=== PATIENT | male | born 1960 | race Caucasian/White ===

== ENCOUNTER 2020-08-15 11:31 | Day surgery (SDC) | payer OTHER ==
[~2020-08-15 11:31] MED LIST: ADULT LOW DOSE81 MG PO; ALEVE220 M1 PO; ASPIRIN CHEWABL81 MG PO; MEDROL 4MG DOSEP4 MG PO; MELOXICAM15 MG PO; NORCO 5-325 TA1 EACH PO; PERCOCET 5-3251 EACH PO; PROBIOTIC1 EAC3 PO; SOTALOL80 MG PO; TOPROL XL 25MG25 MG PO; VITAMIN B-121000 MC1 PO
[2020-08-15] MEDS ORDERED: PERCOCET 5-3251 EACH PO (11:40)
[2020-08-16 05:59] LABS: BASOPHIL 0.1 % (0-2); EOSINOPHIL 0.1 % (0-5); HCT 40.6 % (42.0-52.0); HGB 13.5 g/dl (13.2-18.0); LYMPHOCYTE 5.3 % (15-48); MCH 31.8 pg (25.0-31.0); MCHC 33.3 g/dL (32.0-36.0); MCV 95.8 fL (78.0-100.0); MONOCYTE 5.5 % (0-12); MPV 10.7 fL (6.0-9.5); NEUTROPHIL 88.6 % (41-80); NRBC 0; PLT 195 K/uL (150-400); RBC 4.24 M/uL (4.70-6.00); RDW 12.5 % (11.5-14.0); WBC 13.8 K/uL (4.0-10.5)
[2020-08-16 06:18] LABS: BUN/CREAT RATIO (CALC) 16.5 RATIO; CREATININE 0.85 mg/dL (0.67-1.17); POTASSIUM 4.1 mmol/L (3.5-5.1)
[2020-08-16] MEDS ORDERED: ASPIRIN CHEWABL81 MG PO (10:07)
[2020-08-16] MEDS ORDERED: FEOSOL325 MG PO (10:07)
== END 2020-08-16 11:16 | disposition home or self-care (01) ==
LOC: FAS 11:31 → FMS 12:18
PROVIDERS: Orthopaedic Surgery
DX: M17.11 Unilateral primary osteoarthritis, right knee (principal); I48.91 Unspecified atrial fibrillation; R35.1 Nocturia; E66.9 Obesity, unspecified; Z79.82 Long term (current) use of aspirin; Z79.899 Other long term (current) drug therapy; Z96.652 Presence of left artificial knee joint
CPT/HCPCS: 36415; 73560; 80048; 85025; 86850; 86900; 86901; 94010; 94760; 94762; 97110; 97116; 97162; 97165; 97530-GP; C1713; C1776; J0171; J0697; J1100; J1170; J1885; J2250; J2270; J2405; J2704; J2795; J3010; J7120

== ENCOUNTER 2021-01-24 04:53 | Inpatient (IN) | payer OTHER ==
[~2021-01-24] VITALS: Ht 172.7 cm; Wt 121.1 kg
[~2021-01-24 04:53] MED LIST changes: +FEOSOL325 MG PO
[2021-01-24 05:36] LABS: BASOPHIL 0.3 % (0-2); EOSINOPHIL 0.1 % (0-5); HCT 41.3 % (42.0-52.0); HGB 14.2 g/dl (13.2-18.0); LYMPHOCYTE 3.5 % (15-48); MCH 32.1 pg (25.0-31.0); MCHC 34.4 g/dL (32.0-36.0); MCV 93.2 fL (78.0-100.0); MONOCYTE 2.5 % (0-12); MPV 10.5 fL (6.0-9.5); NEUTROPHIL 93.3 % (41-80); NRBC 0; PLT 145 K/uL (150-400); RBC 4.43 M/uL (4.70-6.00); RDW 13.3 % (11.5-14.0); WBC 8.9 K/uL (4.0-10.5)
[2021-01-24 05:50] LABS: BILIRUBIN 1+ mg/dL (NEGATIVE); BLOOD 1+ Ery/uL (NEGATIVE); CLARITY CLEAR (CLEAR); COLOR YELLOW (YELLOW); GLUCOSE (U) NORMAL (NORMAL); LEUKOCYTES TRACE Leu/uL (NEGATIVE); NITRITE NEGATIVE (NEGATIVE); PROTEIN 2+ mg/dL (NEGATIVE); SPECIFIC GRAVITY >=1.030 (1.001-1.030)
[2021-01-24 05:50] LABS: ALBUMIN 3.8 g/dL (3.4-5.0); BILIRUBIN - TOTAL 1.3 mg/dL (0.2-1.0); BUN/CREAT RATIO (CALC) 14.9 RATIO; CREATININE 0.94 mg/dL (0.67-1.17); GLOBULIN (CALCULATION) 3.8 g/dL; POTASSIUM 3.9 mmol/L (3.5-5.1); TOTAL PROTEIN 7.6 g/dL (6.4-8.2)
[2021-01-24 05:59] LABS: BACTERIA TRACE
[2021-01-24 06:00] LABS: MUCOUS TRACE
[2021-01-24 06:06] LABS: LACTIC ACID 2.8 mmol/L (0.4-1.9)
[2021-01-24 06:08] LABS: CORONAVIRUS 2019 SARS-COV-2 NEGATIVE (NEGATIVE); INFLUENZA A NAA NEGATIVE (NEGATIVE)
[2021-01-24] MEDS ORDERED: ASPIRIN81 MG PO (10:45)
--- NOTE | 2021-01-24 16:43 | NUR ---
RIA BOCANEGRA IN ROOM, NOTICED THAT PATIENT WAS SHAKIN UNCONTROLLABLY AND HIS RR WERE INCREASED. PATIENT APPEARED RUBY, PALE AND RIA WAS UNABLE TO OBTAIN PATIENTS VITALS, IMMEDIATELEY CALLED FOR ANDREAS REAL RN. UPON ARRIVAL TO ROOM ANDREAS BOCANEGRA CALLED RAPID RESPONSE. ROUGH PATCHER CALLED AT 1610, INITIAL GLUCOSE 95, INITAL VITALS FOLLOWS: BP (UNABLE TO OBTAIN R/T SHAKING, WILL GET MANUAL), HR 155, RR 38, O2 ON 2L NC 94%, AXILLARY TEMP 103. CALLED FOR EKG AND ABG. DR SMITH (PRIMARY MD) AND DR COVARRUBIAS RESPONDED AT 1613. EKG AND ABG UNABLE TO BE OBTAINED R/T PATIENT SHAKING. DR SMITH ORDERED 0.5 IV ATIVAN X1 NOW, GIVEN BY RIA BOCANEGRA AT 1615. HE ALSO ORDERED 15MG IV TORADOL NOW X1, GIVEN BY RIA RN AT 1619. HE ALSO ORDERED 650MG TYLENOL SUPPOSITORY TO BE GIVEN NOW, AND WAS ADMINISTERED BY ANDREAS BOCANEGRA AT 1620. A SECOND IV SITE ESTABLISHED, #20 IN RIGHT AC, BLOOD WORK COLLECTED AND SENT AT THIS TIME. LR STARTED AT 75ML/HOUR. PATIENT TRASNPORTED IN STABLE CONDITION AT 1634. GREEN SEPSIS PROTOCOL FORM PULLED AND INITATED, BLOOD CULTURES DRAWN AND SENT WITH IV START.
[2021-01-24 18:31] LABS: HCT 43.7 % (42.0-52.0); HGB 14.6 g/dl (13.2-18.0); MCHC 33.4 g/dL (32.0-36.0); MCV 95.8 fL (78.0-100.0); MPV 11.7 fL (6.0-9.5); RBC 4.56 M/uL (4.70-6.00); RDW 13.5 % (11.5-14.0); WBC 4.4 K/uL (4.0-10.5)
[2021-01-24 18:43] LABS: BUN/CREAT RATIO (CALC) 13.8 RATIO; CREATININE 1.09 mg/dL (0.67-1.17); POTASSIUM 4.6 mmol/L (3.5-5.1)
[2021-01-25 05:37] LABS: HCT 37.6 % (42.0-52.0); HGB 12.9 g/dl (13.2-18.0); MCH 32.2 pg (25.0-31.0); MCHC 34.3 g/dL (32.0-36.0); MCV 93.8 fL (78.0-100.0); MPV 10.6 fL (6.0-9.5); RBC 4.01 M/uL (4.70-6.00); RDW 13.7 % (11.5-14.0)
[2021-01-25 05:40] LABS: WBC 9.8 K/uL (4.0-10.5)
[2021-01-25 05:48] LABS: MAGNESIUM 1.8 mg/dL (1.8-2.4)
[2021-01-25 06:03] LABS: BUN/CREAT RATIO (CALC) 15.9 RATIO; CREATININE 0.88 mg/dL (0.67-1.17); POTASSIUM 3.9 mmol/L (3.5-5.1)
--- NOTE | 2021-01-25 14:25 | NUR ---
1350 MIDLINE ORDERED FOR IV ANTIBIOTICS AT HOME, ORDER WAS GIVEN BY DR. SMITH. PROCEDURE WAS EXPLAINED TO PT. PT AGREED. PT WAS PREPPED AND DRAPED IN STERILE FASHION. THE PT'S LEFT UPPER ARM BASILIC VEIN WAS VISUALIZED USING THE SITE RITE 6 US MACHINE. A 21 GAUGE GUIDE NEEDLE WAS USED. THE AREA WAS NUMBED PRIOR TO THE INSERTION OF THE GUIDE NEEDLE WITH 1% LIDOCAINE. GOOD BLOOD RETURN WAS NOTED WITH THE INSERTION OF THE GUIDE NEEDLE. THE GUIDE WIRE THREADED EASILY. THE NEEDLE WAS REMOVED AND THE MIDLINE CHATETER WAS PLACED OVER THE WIRE. THE WIRE AND SHEATH WERE REMOVED. GOOD BLOOD RETURN WAS NOTED. A CONNECTOR WAS FLUSHED AND PLACED OVER THE END OF THE CATHETER. A STAT LOCK WAS PLACED ON THE CATHETER AND A BIOPATCH WAS PLACED AROUND THE CATHETER AT THE INSERTION SITE. A STERILE TEGADERM WAS PLACED OVER THE MIDLINE CATETER. PT TOLERATED THE PROCEDURE WELL. PT HAS A 20 G 10 CM POWERGLIDE MIDLINE CATHETER. PT TOLERATED THE PROCEDURE WELL. THIS IS NOT A CENTRAL LINE. REPORT WAS GIVEN TO EMMA ROMAN R.N. ON TCU. THE PATIENT 'S BED WAS LOWERED TO THE FLOOR, SIDERAILS UP X 2, CALL LIGHT WITHIN REACH. PT TOLERATED PROCEDURE WELL.
--- NOTE | 2021-01-25 15:16 | NUR ---
01/25/21 Mr. Sunshine shares a home with his spouse. He is employed and was independent in the home and community prior to admission. Mr. Sunshine will require IV antibiotics following discharge. He prefers [facility]; affliation understood. A referral will be made to [facility] once the medication has been ordered. - Patient is currently using 02. Please advise if needed at home.
[2021-01-26 05:36] LABS: HCT 35.1 % (42.0-52.0); MCH 32.1 pg (25.0-31.0); MCHC 34.2 g/dL (32.0-36.0); MCV 93.9 fL (78.0-100.0); MPV 10.9 fL (6.0-9.5); RBC 3.74 M/uL (4.70-6.00); RDW 13.8 % (11.5-14.0); WBC 7.7 K/uL (4.0-10.5)
[2021-01-26 05:48] LABS: BUN/CREAT RATIO (CALC) 9.7 RATIO; CREATININE 0.93 mg/dL (0.67-1.17); POTASSIUM 3.6 mmol/L (3.5-5.1); VANCOMYCIN, TROUGH 7.7 ug/mL (10-20)
[2021-01-26 22:07] LABS: CHLAMYDIA TRACHOMATIS, NAA Negative (Negative); NEISSERIA GONORRHOEAE, NAA Negative (Negative)
--- NOTE | 2021-01-27 01:27 | NUR ---
Pt having discomfort with hylton catheter. Straining to "push out urine" and wanting to get up and out of bed frequently. discomfort unrelieved by oxybutynin. AZO given, see MAR. Hylton cath flushed with 50cc NS x2 with 100cc urine retrieved in total. No clots present in flush, small clots present in drainage bag. Pt states he feels much better after flushing of hylton.
[2021-01-27 06:25] LABS: HCT 35.2 % (42.0-52.0); HGB 12.2 g/dl (13.2-18.0); MCH 32.1 pg (25.0-31.0); MCHC 34.7 g/dL (32.0-36.0); MCV 92.6 fL (78.0-100.0); MPV 10.4 fL (6.0-9.5); RBC 3.8 M/uL (4.70-6.00); WBC 8.5 K/uL (4.0-10.5)
[2021-01-27 07:00] LABS: CREATININE 0.95 mg/dL (0.67-1.17); POTASSIUM 3.4 mmol/L (3.5-5.1)
--- NOTE | 2021-01-27 12:42 | NUR ---
1242 CARDIZEM GTT STOPPED PER ORDER. HR 87
[2021-01-28 06:24] LABS: HCT 28.6 % (42.0-52.0); HGB 9.2 g/dl (13.2-18.0); MCH 30.5 pg (25.0-31.0); MCHC 32.2 g/dL (32.0-36.0); MCV 94.7 fL (78.0-100.0); MPV 9.4 fL (6.0-9.5); RBC 3.02 M/uL (4.70-6.00); RDW 14.9 % (11.5-14.0)
[2021-01-28 06:50] LABS: CREATININE 1.27 mg/dL (0.67-1.17); POTASSIUM 4.3 mmol/L (3.5-5.1)
[2021-01-28 11:20] LABS: IRON % SATURATION 24.5 %SAT (20-50)
[2021-01-28 11:53] LABS: FOLIC ACID (SERUM) 16.7 ng/mL (8.6-58.9)
[2021-01-29 06:37] LABS: MCH 31.6 pg (25.0-31.0); MCHC 34.5 g/dL (32.0-36.0); MCV 91.6 fL (78.0-100.0); MPV 10.2 fL (6.0-9.5); RBC 4.15 M/uL (4.70-6.00); RDW 14.5 % (11.5-14.0); WBC 9.6 K/uL (4.0-10.5)
[2021-01-29 06:38] LABS: HGB 13.1 g/dl (13.2-18.0)
[2021-01-29 07:05] LABS: CREATININE 0.98 mg/dL (0.67-1.17); POTASSIUM 3.4 mmol/L (3.5-5.1)
[2021-01-30 05:42] LABS: HCT 39.6 % (42.0-52.0); HGB 13.4 g/dl (13.2-18.0); MCH 31.8 pg (25.0-31.0); MCHC 33.8 g/dL (32.0-36.0); MCV 93.8 fL (78.0-100.0); MPV 9.8 fL (6.0-9.5); RBC 4.22 M/uL (4.70-6.00); RDW 14.8 % (11.5-14.0); WBC 9.6 K/uL (4.0-10.5)
[2021-01-30 06:14] LABS: CREATININE 1.16 mg/dL (0.67-1.17); POTASSIUM 3.9 mmol/L (3.5-5.1)
[2021-01-30] MEDS ORDERED: AMOX TR-K CLV1 EAC4 PO (11:11)
[2021-01-30] MEDS ORDERED: ELIQUIS5 MG PO (11:11)
[2021-01-30] MEDS ORDERED: LOPRESSOR50 MG PO (11:11)
[2021-01-30] MEDS ORDERED: TAMSULOSIN HCL0.4 MG PO (11:53)
--- NOTE | 2021-01-30 12:40 | NUR ---
CARLOTA EASTMAN WAS NOTIFIED OF PT DISHCARGING HOME TODAY
--- NOTE | 2021-02-01 12:05 | NUR ---
PER JAREN WITH [facility]. PT REFUSED HH SERVICES FROM [facility].
== END 2021-01-30 12:00 | disposition home health service (06) | DRG 872 ==
LOC: FER 04:53 → FMS 09:37 → FTCU 09:37
PROVIDERS: Emergency Medicine Emergency Medical Services; Internal Medicine; Nurse Practitioner; ADMIT Hospitalist
PROC: 05HC33Z Insertion of Infusion Device into Left Basilic Vein, Percutaneous Approach (ICD-10-PCS; principal; 2021-01-25)
DX: A41.51 Sepsis due to Escherichia coli [E. coli] (principal); N30.00 Acute cystitis without hematuria; N17.9 Acute kidney failure, unspecified; N41.0 Acute prostatitis; R65.20 Severe sepsis without septic shock; I34.0 Nonrheumatic mitral (valve) insufficiency; Z87.891 Personal history of nicotine dependence; Z96.659 Presence of unspecified artificial knee joint; I48.0 Paroxysmal atrial fibrillation; Z20.822 Contact with and (suspected) exposure to COVID-19; D64.9 Anemia, unspecified; N28.1 Cyst of kidney, acquired
CPT/HCPCS: 36415; 36600; 71045; 71275; 80048; 80053; 80202; 81001; 82270; 82607; 82728; 82746; 82803; 83540; 83550; 83605; 83690; 83735; 84100; 84145; 84484; 85025; 85379; 87040; 87076; 87077; 87088; 87186; 87491; 87591; 93005; 97161; J1642; J1650; J1885; J1956; J2060; J2405; J2543; J3370; J7040; J7050; J7120; Q9967; U0002